=== PATIENT | male | born 1985 | race Hispanic/Latino ===

== ENCOUNTER 2018-02-25 06:14 | Emergency (ER) | payer MEDICARE, OTHER, SELFPAY ==
[2018-02-25 06:25] VITALS: BP 135/88; PULSE 95; RESP 18; TEMP 36.4; O2SAT 100; BMI 25.2
--- NOTE | 2018-02-25 07:35 | ED.BACK ---
HPI - Back Pain/Injury General Chief Complaint: Back Pain/Injury Stated Complaint: pain, weakness numbness lower back to feet Time Seen by Provider: 02/25/18 07:15 Source: patient Mode of arrival: ambulatory Limitations: no limitations History of Present Illness HPI Narrative: Patient complains of back pain with bilateral ft numbness. He states that the pain is in his bilateral lateral lower lumbar area radiates down through his bilateral SI joints into his thighs. He states his calves also feel sore. Patient states he has numbness in his feet but right is worse than left. Patient states that he has some numbness over his penile and anal areas, but no incontinence. He states that he usually uses a cane or a walker to walk, and does have a wheelchair at also, but has not been using that at this time. He states that when he stands up, he does not feel weak in the legs, but mainly uses a cane because the pain in his back. Patient denies dropping of his feet. Patient has a longstanding history of back issues, and states his chronic issues include DJD, spinal stenosis, and sciatica. States he had an accident in the early , which in part set all of this off. He states that he has had many episodes like that when he is having now, but that usually manage the pain Aleve, has not been able to get adequate relief with just leave this time. He also states that the numbness seemed slightly worse. He does note that he has had incontinence with previous episodes like this, but that this is not been an issue this time. He states his last MRI was in April, and that he sees a assistant broker. However, he denies rheumatoid arthritis, lupus, or any other autoimmune disease. He states his only other problem is fibromyalgia. Patient denies any acute injury as a cause of this exacerbation. 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 Patient just saw his primary doctor about a week ago when this episode 1st started, and that she diagnosed him with sciatica bilaterally. 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 Patient states that his primary care physician has not discussed referral to a neurosurgeon as yet. Patient states he is mainly here because he cannot get relief of the pain. Related Data Home Medications Medication Instructions Recorded Confirmed naproxen 500 mg PO BIDCC PRN #0 01/23/17 02/25/18 omeprazole 20 mg PO BID #0 01/23/17 02/25/18 famotidine [Pepcid] 20 mg PO BID #0 05/10/17 02/25/18 pregabalin [Lyrica] 150 mg PO TID #0 05/10/17 02/25/18 rizatriptan [Maxalt-JIG AND FIXTURE BUILDER] 5 mg TRANSLINGUAL PRN PRN #0 05/10/17 02/25/18 donepezil 5 mg PO DAILY 02/25/18 02/25/18 escitalopram oxalate 30 mg PO DAILY 02/25/18 02/25/18 magnesium oxide 400 mg PO DAILY 02/25/18 02/25/18 ondansetron 4 mg PO Q6H PRN 02/25/18 02/25/18 prazosin 5 mg PO QPM 02/25/18 02/25/18 promethazine [Phenadoz] 25 mg NE PRN PRN 02/25/18 02/25/18 turmeric 1 tab PO DAILY 02/25/18 02/25/18 zolpidem 10 mg PO BEDTIME PRN 02/25/18 02/25/18 zonisamide 50 mg PO QPM 02/25/18 02/25/18 Previous Rx's Medication Instructions Recorded hydrocodone-acetaminophen 1 tab PO Q4H PRN #14 tab 02/25/18 Allergies Allergy/AdvReac Type Severity Reaction Status Date / Time metoclopramide [From REGLAN] Allergy Unknown Verified 02/25/18 06:30 prochlorperazine Allergy Unknown Verified 02/25/18 06:30 [From COMPAZINE] tramadol [TRAMADOL] Allergy Unknown Unverified 05/16/17 12:07 Review of Systems Constitutional Denies chills, Denies fever(s), Denies lethargy and Denies weakness Eyes Denies change in vision, Denies eye discharge, Denies irritation and Denies loss of vision ENT Ears, Nose, Mouth, and Throat: Denies change in voice, Denies neck pain and Denies sore throat Cardiovascular Denies chest pain, Denies irregular heart rhythm, Denies lightheadedness, Denies palpitations, Denies dyspnea, Denies dyspnea on exertion and Denies orthopnea Respiratory Denies cough, Denies dyspnea, Denies dyspnea on exertion and Denies wheezing Gastrointestinal Gastrointestinal: Denies abdominal pain, Denies change in bowel habits, Denies diarrhea, Denies nausea and Denies vomiting Genitourinary Denies hematuria, Denies flank pain, Denies urinary incontinence and Denies urinary urgency Musculoskeletal Reports back pain and Denies neck pain Integumentary/Breasts Denies pruritus, Denies erythema, Denies rash and Denies wounds Neurologic Denies confusion, Denies loss of vision, Reports paresthesias and Denies weakness Psychiatric Denies anxiety, Denies confusion, Denies depression, Denies homicidal ideation and Denies suicidal ideation Endocrine Denies palpitations Hematologic/Lymphatic Denies easy bruising Allergic/Immunologic Denies wheezing [facility] Medical History Sciatica (Acute) Radiculopathy (Acute) Chronic back pain (Acute) Fibromyalgia (Acute) Surgical History No pertinent past surgical history (Acute) Social History Smoking Status: Never smoker Exam Initial Vital Signs Initial Vital Signs: Vital Signs Temperature 97.6 F 02/25/18 06:25 Pulse Rate 95 H 02/25/18 06:25 Respiratory Rate 18 02/25/18 06:25 Blood Pressure 135/88 02/25/18 06:25 Pulse Oximetry 100 02/25/18 06:25 Const General: cooperative and well developed Nutritional Appearance: well nourished Orientation: alert, awake, oriented x3 and not confused [facility] Head: normocephalic and atraumatic Ears: external ears normal and TM's normal bilaterally Nose: external nose normal and No nasal discharge Face and sinus: sinuses nontender, face symmetric, no sinus tenderness and No dry mucous membranes Mouth: oral mucosae normal and moist mucous membranes Teeth and gingiva: dentition normal Throat: tonsils normal and uvula midline Eyes General: appearance normal, both eyes and all related structures Eyelids: eyelids normal Conjunctivae: conjunctivae normal Sclera: sclerae normal Pupils: PERRL EOM: EOM intact bilaterally Neck Neck: normal visual inspection, trachea midline, No lymphadenopathy, No midline deformity and No JVD Lymphatic: No lymphedema Chest Chest: normal inspection of the chest Resp Effort & Inspection: normal respiratory effort, able to speak in complete sentences, no respiratory distress and no use of accessory muscles Auscultation: clear to auscultation bilaterally, no rales, no rhonchi and no wheezes Cardio Rate: regular rate Rhythm: regular rhythm Heart Sounds: no click, no gallops, no murmurs and no rubs Pulses: normal peripheral pulses GI Inspection: non-distended Palpation: soft, no hepatosplenomegaly, No guarding, No pulsatile mass and No tender Auscultation: normal bowel sounds Back/Spine/Pelvis Back: No CVA tenderness Cervical Spine: cervical ROM normal and No pain with cervical ROM Thoracic/Lumbar Spine: thoracic and lumbar spine normal to inspection Skin General: no rashes or lesions noted, No jaundice and No petechiae Neuro General: alert, oriented x3, tone normal, no focal motor deficits and CN's II-XI intact bilaterally Cognition: normal cognition Speech: speech normal Gait: wide-based and other (Patient ambulates slowly and somewhat haltingly, secondary to pain.) Motor: muscle tone normal throughout and strength 5/5 throughout Sensory Exam: double simultaneous stimulation abnormal (Patient has slightly decreased sensation to light touch in his right lower extremity compared with left.) Extrem General: full ROM, no clubbing, cyanosis or edema, no pedal edema and no calf tenderness Psych Appearance: well kempt Mental Status: mental status grossly normal Attitude: cooperative Thought Content: normal and suicidality Judgment: judgment good Course Course Narrative: This patient had a long-standing history of similar episodes, and had had a recent MRI in April. He had no recent trauma to raise concern for a new injury. Patient had saddle anesthesia, which was consistent with prior exacerbations and also, with his chronic symptoms somewhat, but did not display incontinence. He lacked risk factors for spinal epidural abscess, including drug use, and was afebrile. Patient was given IM Dilaudid and Toradol in the emergency department. MRI was able to fit the patient in for an MRI of his lumbar spine, and this was unremarkable for any emergent findings. The patient was informed of his results, and I did feel he was stable for discharge home. We have discussed symptomatic management at home. He states he has a wheelchair at home, which he can use, and has used in the past, but that he does not like to use it because it is embarrassing to him. The patient has requested a couple of days off work, for which I have given him a work note. Orders Ordered: Discontinued Medications Hydromorphone HCl (Dilaudid) 2 mg IM NOW ONE Stop: 02/25/18 07:35 Last Admin: 02/25/18 07:44 Dose: 2 mg Ketorolac Tromethamine (Toradol) 60 mg IM NOW ONE Stop: 02/25/18 07:35 Last Admin: 02/25/18 07:43 Dose: 60 mg Vital Signs - 8 hr 02/25/18 06:25 Temperature 97.6 F Pulse Rate 95 H Respiratory Rate 18 Blood Pressure 135/88 Pulse Oximetry 100 MDM - Back Pain/Injury Medical Records Attestation: I reviewed the patient's medical records. Imaging Data MRI - lumbar: Radiologist's impression: PROCEDURE: MR LUMBAR SPINE WO CON INDICATIONS: back pain, saddle anesthesia, LE increasingly numb/weak TECHNIQUE: Noncontrast sagittal T1 spin echo and T2 fast echo, sagittal STIR, axial T1 and T2 fast spin echo through the lumbar spine. In cases with scoliosis, additional coronal T2 fast spin echo may be performed. COMPARISON: [facility], MR, MR LUMBAR SPINE WITHOUT CONTRAST, 03/23/2017, 16:43. [facility], CR, XR LUMBAR SPINE WITH OBLIQUES, 04/05/2017, 11:25. [facility], MR, L-SPINE WITHOUT CONTRAST, 01/23/2017, 14:11. FINDINGS: Image quality: Excellent. Alignment and Curvature: There is normal bony alignment. Bone Marrow: Marrow is of normal overall signal. No acute vertebral body compression fractures. There is metal artifact from what appears to be a set of embolization coils in the expected area of the left external iliac artery of the pelvis, seen by plain film imaging in the past. Spinal Cord: Conus medullaris terminates at the L1 level. Visualized cord demonstrates normal signal and size. Paraspinous Soft Tissues: No paravertebral masses. L1-L2: Normal appearance. L2-L3: Normal appearance. L3-L4: Normal appearance. L4-L5: Normal appearance. L5-S1: Mild degenerative disc height reduction and desiccation, slight posterior disc bulge. There is no evidence for impingement on individual nerve roots or worsening of degenerative changes over time.. IMPRESSION: Minimal degenerative disc disease at L5-S1 without spinal or foraminal stenosis, stable over time. Prior embolization coils produce metal artifact obscuring visualization of the left common iliac artery area of the left hemipelvis. This has been previously present by plain film in 2006 and the metal artifact has not changed in appearance from the comparison MRI in March of last year. Findings discussed personally with the emergency room physician caring for the patient. Dictated by: Gil Mckeon M.D. on 02/25/2018 at 11:12 Approved by: Gil Mckeon M.D. on 02/25/2018 at 11:20 Discharge Plan Departure Patient Disposition: Home Clinical Impression: Acute exacerbation of chronic low back pain, Radiculopathy, Sciatica Discharge Date/Time: 02/25/18 12:36 Interventions: ED Discharge Assessment Last Done: 02/25/18 12:36 Instructions: DI for Back Pain With Sciatica, DI for Lumbar Radiculopathy Activity Restrictions/Additional Instructions: Your MRI did not show any evidence of worsening of your spinal condition. There is no impingement on your spinal cord. At this point in time, you should take medication help with the pain and continue your outpatient follow-up plans. 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-JIG AND FIXTURE BUILDER] 5 MG tablet,disintegrating 5 mg Translingual PRN PRN (Reason: Migraine Headache) Qty: 0 RF: 0 pregabalin [Lyrica] 150 MG capsule 150 mg PO TID Qty: 0 RF: 0 donepezil 5 mg tablet 5 mg PO DAILY RF: 0 prazosin 5 mg capsule 5 mg PO QPM RF: 0 zolpidem 10 mg tablet 10 mg PO BEDTIME PRN (Reason: Insomnia) RF: 0 escitalopram oxalate 20 mg tablet 30 mg PO DAILY RF: 0 promethazine [Phenadoz] 25 mg suppository 25 mg NE PRN PRN (Reason: Nausea And Vomiting) RF: 0 ondansetron 4 mg Tablet,Disintegrating 4 mg PO Q6H PRN (Reason: Nausea) RF: 0 zonisamide 25 mg capsule 50 mg PO QPM RF: 0 magnesium oxide 400 mg magnesium Tablet 400 mg PO DAILY RF: 0 turmeric 1 tab PO DAILY RF: 0 Referrals: Shante Antunez DO [Primary Care Provider] -
[2018-02-25] MEDS: KETOROLAC 60 MG/2 ML VIAL IM (07:43)
[2018-02-25] MEDS: HYDROMORPHONE 2 MG INJ IM (07:44)
--- NOTE | 2018-02-25 07:50 | ED_ITS ---
HPI - Back Pain/Injury General Chief Complaint: Back Pain/Injury Stated Complaint: pain, weakness numbness lower back to feet Time Seen by Provider: 02/25/18 07:15 Source: patient Mode of arrival: ambulatory Limitations: no limitations History of Present Illness HPI Narrative: Patient complains of back pain with bilateral ft numbness. He states that the pain is in his bilateral lateral lower lumbar area radiates down through his bilateral SI joints into his thighs. He states his calves also feel sore. Patient states he has numbness in his feet but right is worse than left. Patient states that he has some numbness over his penile and anal areas, but no incontinence. He states that he usually uses a cane or a walker to walk, and does have a wheelchair at also, but has not been using that at this time. He states that when he stands up, he does not feel weak in the legs , but mainly uses a cane because the pain in his back. Patient denies dropping of his feet. Patient has a longstanding history of back issues, and states his chronic issues include DJD, spinal stenosis, and sciatica. States he had an accident in the early , which in part set all of this off. He states that he has had many episodes like that when he is having now, but that usually manage the pain Aleve, has not been able to get adequate relief with just leave this time. He also states that the numbness seemed slightly worse. He does note that he has had incontinence with previous episodes like this, but that this is not been an issue this time. 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 However, he denies rheumatoid arthritis, lupus, or any other autoimmune disease. He states his only other problem is fibromyalgia. Patient denies any acute injury as a cause of this exacerbation. 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 Patient just saw his primary doctor about a week ago when this episode 1st started, and that she diagnosed him with sciatica bilaterally. 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 Patient states that his primary care physician has not discussed referral to a neurosurgeon as yet. Patient states he is mainly here because he cannot get relief of the pain. Related Data Home Medications Medication Instructions Recorded Confirmed naproxen 500 mg PO BIDCC PRN #0 01/23/17 02/25/18 omeprazole 20 mg PO BID #0 01/23/17 02/25/18 famotidine [Pepcid] 20 mg PO BID #0 05/10/17 02/25/18 pregabalin [Lyrica] 150 mg PO TID #0 05/10/17 02/25/18 rizatriptan [Maxalt-[employer]AS[employer]ER] 5 mg TRANSLINGUAL PRN PRN #0 05/10/17 02/25/18 donepezil 5 mg PO DAILY 02/25/18 02/25/18 escitalopram oxalate 30 mg PO DAILY 02/25/18 02/25/18 magnesium oxide 400 mg PO DAILY 02/25/18 02/25/18 ondansetron 4 mg PO Q6H PRN 02/25/18 02/25/18 prazosin 5 mg PO QPM 02/25/18 02/25/18 promethazine [Phenadoz] 25 mg IA PRN PRN 02/25/18 02/25/18 turmeric 1 tab PO DAILY 02/25/18 02/25/18 zolpidem 10 mg PO BEDTIME PRN 02/25/18 02/25/18 zonisamide 50 mg PO QPM 02/25/18 02/25/18 Previous Rx's Medication Instructions Recorded hydrocodone-acetaminophen 1 tab PO Q4H PRN #14 tab 02/25/18 Allergies Allergy/AdvReac Type Severity Reaction Status Date / Time metoclopramide [From REGLAN] Allergy Unknown Verified 02/25/18 06:30 prochlorperazine Allergy Unknown Verified 02/25/18 06:30 [From COMPAZINE] tramadol [TRAMADOL] Allergy Unknown Unverified 05/16/17 12:07 Review of Systems Constitutional Denies chills, Denies fever(s), Denies lethargy and Denies weakness Eyes Denies change in vision, Denies eye discharge, Denies irritation and Denies loss of vision ENT Ears, Nose, Mouth, and Throat: Denies change in voice, Denies neck pain and Denies sore throat Cardiovascular Denies chest pain, Denies irregular heart rhythm, Denies lightheadedness, Denies palpitations, Denies dyspnea, Denies dyspnea on exertion and Denies orthopnea Respiratory Denies cough, Denies dyspnea, Denies dyspnea on exertion and Denies wheezing Gastrointestinal Gastrointestinal: Denies abdominal pain, Denies change in bowel habits, Denies diarrhea, Denies nausea and Denies vomiting Genitourinary Denies hematuria, Denies flank pain, Denies urinary incontinence and Denies urinary urgency Musculoskeletal Reports back pain and Denies neck pain Integumentary/Breasts Denies pruritus, Denies erythema, Denies rash and Denies wounds Neurologic Denies confusion, Denies loss of vision, Reports paresthesias and Denies weakness Psychiatric Denies anxiety, Denies confusion, Denies depression, Denies homicidal ideation and Denies suicidal ideation Endocrine Denies palpitations Hematologic/Lymphatic Denies easy bruising Allergic/Immunologic Denies wheezing [facility] Medical History Sciatica (Acute) Radiculopathy (Acute) Chronic back pain (Acute) Fibromyalgia (Acute) Surgical History No pertinent past surgical history (Acute) Social History Smoking Status: Never smoker Exam Initial Vital Signs Initial Vital Signs: Vital Signs Temperature 97.6 F 02/25/18 06:25 Pulse Rate 95 H 02/25/18 06:25 Respiratory Rate 18 02/25/18 06:25 Blood Pressure 135/88 02/25/18 06:25 Pulse Oximetry 100 02/25/18 06:25 Const General: cooperative and well developed Nutritional Appearance: well nourished Orientation: alert, awake, oriented x3 and not confused [facility] Head: normocephalic and atraumatic Ears: external ears normal and TM's normal bilaterally Nose: external nose normal and No nasal discharge Face and sinus: sinuses nontender, face symmetric, no sinus tenderness and No dry mucous membranes Mouth: oral mucosae normal and moist mucous membranes Teeth and gingiva: dentition normal Throat: tonsils normal and uvula midline Eyes General: appearance normal, both eyes and all related structures Eyelids: eyelids normal Conjunctivae: conjunctivae normal Sclera: sclerae normal Pupils: PERRL EOM: EOM intact bilaterally Neck Neck: normal visual inspection, trachea midline, No lymphadenopathy, No midline deformity and No JVD Lymphatic: No lymphedema Chest Chest: normal inspection of the chest Resp Effort & Inspection: normal respiratory effort, able to speak in complete sentences, no respiratory distress and no use of accessory muscles Auscultation: clear to auscultation bilaterally, no rales, no rhonchi and no wheezes Cardio Rate: regular rate Rhythm: regular rhythm Heart Sounds: no click, no gallops, no murmurs and no rubs Pulses: normal peripheral pulses GI Inspection: non-distended Palpation: soft, no hepatosplenomegaly, No guarding, No pulsatile mass and No tender Auscultation: normal bowel sounds Back/Spine/Pelvis Back: No CVA tenderness Cervical Spine: cervical ROM normal and No pain with cervical ROM Thoracic/Lumbar Spine: thoracic and lumbar spine normal to inspection Skin General: no rashes or lesions noted, No jaundice and No petechiae Neuro General: alert, oriented x3, tone normal, no focal motor deficits and CN's II- XI intact bilaterally Cognition: normal cognition Speech: speech normal Gait: wide-based and other (Patient ambulates slowly and somewhat haltingly, secondary to pain.) Motor: muscle tone normal throughout and strength 5/5 throughout Sensory Exam: double simultaneous stimulation abnormal (Patient has slightly decreased sensation to light touch in his right lower extremity compared with left.) Extrem General: full ROM, no clubbing, cyanosis or edema, no pedal edema and no calf tenderness Psych Appearance: well kempt Mental Status: mental status grossly normal Attitude: cooperative Thought Content: normal and suicidality Judgment: judgment good Course Course Narrative: This patient had a long-standing history of similar episodes, and had had a recent MRI in April. He had no recent trauma to raise concern for a new injury. Patient had saddle anesthesia, which was consistent with prior exacerbations and also, with his chronic symptoms somewhat, but did not display incontinence. He lacked risk factors for spinal epidural abscess, including drug use, and was afebrile. Patient was given IM Dilaudid and Toradol in the emergency department. MRI was able to fit the patient in for an MRI of his lumbar spine, and this was unremarkable for any emergent findings. The patient was informed of his results, and I did feel he was stable for discharge home. We have discussed symptomatic management at home. He states he has a wheelchair at home, which he can use, and has used in the past, but that he does not like to use it because it is embarrassing to him. The patient has requested a couple of days off work, for which I have given him a work note. Orders Ordered: Discontinued Medications Hydromorphone HCl (Dilaudid) 2 mg IM NOW ONE Stop: 02/25/18 07:35 Last Admin: 02/25/18 07:44 Dose: 2 mg Ketorolac Tromethamine (Toradol) 60 mg IM NOW ONE Stop: 02/25/18 07:35 Last Admin: 02/25/18 07:43 Dose: 60 mg Vital Signs - 8 hr 02/25/18 06:25 Temperature 97.6 F Pulse Rate 95 H Respiratory Rate 18 Blood Pressure 135/88 Pulse Oximetry 100 MDM - Back Pain/Injury Medical Records Attestation: I reviewed the patient's medical records. Imaging Data MRI - lumbar: Radiologist's impression: PROCEDURE: MR LUMBAR SPINE WO CON INDICATIONS: back pain, saddle anesthesia, LE increasingly numb/weak TECHNIQUE: Noncontrast sagittal T1 spin echo and T2 fast echo, sagittal STIR, axial T1 and T2 fast spin echo through the lumbar spine. In cases with scoliosis, additional coronal T2 fast spin echo may be performed. COMPARISON: [facility], MR, MR LUMBAR SPINE WITHOUT CONTRAST, 2017, 16:43. [facility], CR, XR LUMBAR SPINE WITH OBLIQUES, 04/05/2017, 11 :25. [facility], MR, L-SPINE WITHOUT CONTRAST, 01/23/2017, 14:11. FINDINGS: Image quality: Excellent. Alignment and Curvature: There is normal bony alignment. Bone Marrow: Marrow is of normal overall signal. No acute vertebral body compression fractures. There is metal artifact from what appears to be a set of embolization coils in the expected area of the left external iliac artery of the pelvis, seen by plain film imaging in the past. Spinal Cord: Conus medullaris terminates at the L1 level. Visualized cord demonstrates normal signal and size. Paraspinous Soft Tissues: No paravertebral masses. L1-L2: Normal appearance. L2-L3: Normal appearance. L3-L4: Normal appearance. L4-L5: Normal appearance. L5-S1: Mild degenerative disc height reduction and desiccation, slight posterior disc bulge. There is no evidence for impingement on individual nerve roots or worsening of degenerative changes over time.. IMPRESSION: Minimal degenerative disc disease at L5-S1 without spinal or foraminal stenosis, stable over time. Prior embolization coils produce metal artifact obscuring visualization of the left common iliac artery area of the left hemipelvis. This has been previously present by plain film in 2006 and the metal artifact has not changed in appearance from the comparison MRI in March of last year. Findings discussed personally with the emergency room physician caring for the patient. Dictated by: Gil Mckeon M.D. on 02/25/2018 at 11:12 Approved by: Gil Mckeon M.D. on 02/25/2018 at 11:20 Discharge Plan Departure Patient Disposition: Home Clinical Impression: Acute exacerbation of chronic low back pain, Radiculopathy, Sciatica Discharge Date/Time: 02/25/18 12:36 Interventions: ED Discharge Assessment Last Done: 02/25/18 12:36 Instructions: DI for Back Pain With Sciatica, DI for Lumbar Radiculopathy Activity Restrictions/Additional Instructions: Your MRI did not show any evidence of worsening of your spinal condition. There is no impingement on your spinal cord. At this point in time, you should take medication help with the pain and continue your outpatient follow-up plans. 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] 5 MG tablet,disintegrating 5 mg Translingual PRN PRN (Reason: Migraine Headache) Qty: 0 RF: 0 pregabalin [Lyrica] 150 MG capsule 150 mg PO TID Qty: 0 RF: 0 donepezil 5 mg tablet 5 mg PO DAILY RF: 0 prazosin 5 mg capsule 5 mg PO QPM RF: 0 zolpidem 10 mg tablet 10 mg PO BEDTIME PRN (Reason: Insomnia) RF: 0 escitalopram oxalate 20 mg tablet 30 mg PO DAILY RF: 0 promethazine [Phenadoz] 25 mg suppository 25 mg IA PRN PRN (Reason: Nausea And Vomiting) RF: 0 ondansetron 4 mg Tablet,Disintegrating 4 mg PO Q6H PRN (Reason: Nausea) RF: 0 zonisamide 25 mg capsule 50 mg PO QPM RF: 0 magnesium oxide 400 mg magnesium Tablet 400 mg PO DAILY RF: 0 turmeric 1 tab PO DAILY RF: 0 Referrals: Shante Antunez DO [Primary Care Provider] -
--- NOTE | 2018-02-25 07:50 | PC.NURSE ---
Pt medicated per order. Asking for work note--Dr Boothe notified.
--- NOTE | 2018-02-25 08:35 | DI.MRI.S_ITS ---
PROCEDURE: MR LUMBAR SPINE WO CON INDICATIONS: back pain, saddle anesthesia, LE increasingly numb/weak TECHNIQUE: Noncontrast sagittal T1 spin echo and T2 fast echo, sagittal STIR, axial T1 and T2 fast spin echo through the lumbar spine. In cases with scoliosis, additional coronal T2 fast spin echo may be performed. COMPARISON: [facility], MR, MR LUMBAR SPINE WITHOUT CONTRAST, 03/23/2017, 16:43. [facility], CR, XR LUMBAR SPINE WITH OBLIQUES, 04/05/2017, 11:25. [facility], MR, L-SPINE WITHOUT CONTRAST, 01/23/2017, 14:11. FINDINGS: Image quality: Excellent. Alignment and Curvature: There is normal bony alignment. Bone Marrow: Marrow is of normal overall signal. No acute vertebral body compression fractures. There is metal artifact from what appears to be a set of embolization coils in the expected area of the left external iliac artery of the pelvis, seen by plain film imaging in the past. Spinal Cord: Conus medullaris terminates at the L1 level. Visualized cord demonstrates normal signal and size. Paraspinous Soft Tissues: No paravertebral masses. L1-L2: Normal appearance. L2-L3: Normal appearance. L3-L4: Normal appearance. L4-L5: Normal appearance. L5-S1: Mild degenerative disc height reduction and desiccation, slight posterior disc bulge. There is no evidence for impingement on individual nerve roots or worsening of degenerative changes over time.. IMPRESSION: Minimal degenerative disc disease at L5-S1 without spinal or foraminal stenosis, stable over time. Prior embolization coils produce metal artifact obscuring visualization of the left common iliac artery area of the left hemipelvis. This has been previously present by plain film in 2006 and the metal artifact has not changed in appearance from the comparison MRI in March of last year. Findings discussed personally with the emergency room physician caring for the patient. Dictated by: Gil Mckeon M.D. on 02/25/2018 at 11:12 Approved by: Gil Mckeon M.D. on 02/25/2018 at 11:20
[2018-02-25 08:50] VITALS: BP 134/95; PULSE 76; RESP 16; TEMP 37; O2SAT 99
[2018-02-25 09:50] VITALS: BP 126/94; PULSE 81; RESP 15; O2SAT 97
[2018-02-25 10:34] VITALS: BP 131/96; PULSE 80; RESP 16; O2SAT 98
[2018-02-25 11:00] VITALS: BP 130/87; PULSE 71; RESP 16; O2SAT 99
== END 2018-02-25 12:36 | disposition home or self-care (01) ==
PROVIDERS: Emergency Provider Emergency Medicine; PCP Student in an Organized Health Care Education/Training Program
DX: M54.5 Low back pain (principal); R20.0 Anesthesia of skin; G89.29 Other chronic pain; M54.10 Radiculopathy, site unspecified; M54.30 Sciatica, unspecified side; R53.1 Weakness; M79.7 Fibromyalgia
CPT/HCPCS: 72148; 96372; 99283; 99284; J1170; J1885

== ENCOUNTER 2018-10-08 04:45 | Emergency (ER) | payer MEDICARE, OTHER, SELFPAY ==
[2018-10-08 04:52] VITALS: BP 159/105; PULSE 123; RESP 18; TEMP 36.9; O2SAT 97; BMI 23.5
--- NOTE | 2018-10-08 04:59 | ED_ITS ---
HPI - Headache General Chief Complaint: Headache Stated Complaint: bupper back pain migraines vomiting Time Seen by Provider: 10/08/18 04:46 Source: patient and family Mode of arrival: ambulatory Limitations: no limitations History of Present Illness HPI Narrative: 33M nonsmoker with history of migraines, closed head injury, and chronic back pain presents with his significant other and a chief complaint gradually worsening right-sided upper back and neck pain, gradually worsening over the past few days. He denies any significant, or obvious injury nor overuse. He states it is not uncommon for him to have typical types of pain but they usually will respond to his home regimen. He started with right-sided neck and upper back pain and now is having a migraine which is rather typical for his history. He states his symptoms are worse with bright lights and loud noise and improved with rest and a dark room. His neck and back pain are worse with motion and improved with rest. He denies any numbness, tingling or weakness. He denies any trouble controlling bowel or bladder. MD Complaint: migraine Onset (ago): day(s) Onset description: gradual Location: right Severity: moderate Quality: aching and throbbing Relieving factors: rest and dark room Exacerbating factors: movement of head/neck, light and noise Context: occurred at rest Associated symptoms: nausea, photophobia and sensitivity to sound Treatments prior to arrival: prescription analgesic Related Data Home Medications Medication Instructions Recorded Confirmed naproxen 500 mg PO BIDCC PRN #0 01/23/17 02/25/18 omeprazole 20 mg PO BID #0 01/23/17 02/25/18 famotidine [Pepcid] 20 mg PO BID #0 05/10/17 02/25/18 pregabalin [Lyrica] 150 mg PO TID #0 05/10/17 02/25/18 rizatriptan [Maxalt-ASBESTOS [employer]] 5 mg TRANSLINGUAL PRN PRN #0 05/10/17 02/25/18 donepezil 5 mg PO DAILY 02/25/18 02/25/18 escitalopram oxalate 30 mg PO DAILY 02/25/18 02/25/18 magnesium oxide 400 mg PO DAILY 02/25/18 02/25/18 ondansetron 4 mg PO Q6H PRN 02/25/18 02/25/18 prazosin 5 mg PO QPM 02/25/18 02/25/18 promethazine [Phenadoz] 25 mg MO PRN PRN 02/25/18 02/25/18 turmeric 1 tab PO DAILY 02/25/18 02/25/18 zolpidem 10 mg PO BEDTIME PRN 02/25/18 02/25/18 zonisamide 50 mg PO QPM 02/25/18 02/25/18 Previous Rx's Medication Instructions Recorded hydrocodone-acetaminophen 1 tab PO Q4H PRN #14 tab 02/25/18 diazepam [Valium] 5 mg PO BID-QID PRN #10 tab 10/08/18 ketorolac 10 mg PO Q6H PRN #14 tab 10/08/18 Allergies Allergy/AdvReac Type Severity Reaction Status Date / Time metoclopramide [From REGLAN] Allergy Unknown Verified 02/25/18 06:30 prochlorperazine Allergy Unknown Verified 02/25/18 06:30 [From COMPAZINE] tramadol [TRAMADOL] Allergy Unknown Unverified 05/16/17 12:07 Review of Systems Constitutional Constitutional: Denies chills, Denies fatigue, Denies fever(s), Denies frequent falls, Reports headache(s), Denies lethargy and Denies weakness Eyes Eyes: Denies change in vision, Denies eye discharge, Denies irritation and Denies loss of vision ENT Ears, Nose, Mouth, and Throat: Denies change in voice, Denies dizziness, Reports headache(s), Reports neck pain, Denies sore throat and Denies throat swelling Cardiovascular Cardiovascular: Denies chest pain, Denies irregular heart rhythm, Denies lightheadedness, Denies palpitations, Denies dyspnea, Denies dyspnea on exertion and Denies orthopnea Respiratory Respiratory: Denies cough, Denies dyspnea, Denies dyspnea on exertion and Denies wheezing Gastrointestinal Gastrointestinal: Denies abdominal pain, Denies change in bowel habits, Denies diarrhea, Reports nausea and Denies vomiting Genitourinary Genitourinary: Denies hematuria, Denies flank pain, Denies urinary incontinence and Denies urinary urgency Musculoskeletal Musculoskeletal: Reports back pain, Denies muscle weakness, Reports neck pain, Denies numbness and Denies tingling Integumentary/Breasts Skin/Breast: Denies pruritus, Denies erythema, Denies rash and Denies wounds Neurologic Neurologic: Denies behavioral changes, Denies confusion, Denies dizziness, Denies frequent falls, Reports headache(s), Denies loss of vision, Denies numbness, Denies tingling and Denies weakness Psychiatric Psychiatric: Denies anxiety, Denies behavioral changes, Denies confusion, Denies depression, Denies homicidal ideation and Denies suicidal ideation Endocrine Endocrine: Denies fatigue, Denies flushing and Denies palpitations Hematologic/Lymphatic Hematologic/Lymphatic: Denies easy bruising Allergic/Immunologic Allergic/Immunologic: Denies urticaria, Denies throat swelling and Denies wheezing [facility] Medical History Chronic back pain (Acute) Fibromyalgia (Acute) Radiculopathy (Acute) Sciatica (Acute) Surgical History No pertinent past surgical history (Acute) Social History Smoking Status: Never smoker Social History Smoking Status: Never smoker Exam Narrative Exam Narrative: GENERAL: [33] year old patient appears stated age. Well- nourished, well-developed patient, in mild distress. Clearly in pain HEAD: Atraumatic. Normocephalic. EYES: Pupils equal round and reactive. Extraocular motions intact. No scleral icterus. No injection or drainage. ENT: Nose without bleeding, purulent drainage. Throat without erythema, tonsillar hypertrophy or exudate. Airway patent. NECK: Trachea midline. Right-sided paraspinal muscles are tender to palpation, with palpable spasm CARDIOVASCULAR: Regular rate and rhythm without murmurs, gallops, or rubs. RESPIRATORY: Clear to auscultation. Breath sounds equal bilaterally. No wheezes, rales, or rhonchi. GASTROINTESTINAL: Abdomen soft, non-tender, nondistended. EXTREMITIES: No edema or joint tenderness. Full strength, range of motion and reflexes BACK: Nontender without deformity or crepitance. No flank tenderness. NEURO: AOx3. SKIN: No rash or erythema of visible areas Initial Vital Signs Initial Vital Signs: Vital Signs Temperature 98.4 F 10/08/18 04:52 Pulse Rate 123 H 10/08/18 04:52 Respiratory Rate 18 10/08/18 04:52 Blood Pressure 159/105 H 10/08/18 04:52 Pulse Oximetry 97 10/08/18 04:52 Course Orders Ordered: Discontinued Medications Dexamethasone (Decadron) 10 mg IV NOW ONE Stop: 10/08/18 05:01 Last Admin: 10/08/18 05:10 Dose: 10 mg Documented by: IVANNA Hydromorphone HCl (Dilaudid) 1 mg IV NOW ONE Stop: 10/08/18 05:01 Last Admin: 10/08/18 05:10 Dose: 1 mg Documented by: IVANNA Sodium Chloride (Normal Saline 0.9%) 1,000 mls @ 1,000 mls/hr IV BOLUS ONE Stop: 10/08/18 06:03 Last Infusion: 10/08/18 06:10 Dose: 0 mls/hr Documented by: Admin: 10/08/18 05:10 Dose: 1,000 mls/hr Documented by: IVANNA Ketorolac Tromethamine (Toradol) 15 mg IV NOW ONE Stop: 10/08/18 05:01 Last Admin: 10/08/18 05:10 Dose: 15 mg Documented by: IVANNA Ondansetron HCl (Zofran) 4 mg IV Q4HR PRN PRN Reason: Nausea And Vomiting Last Admin: 10/08/18 05:10 Dose: 4 mg Documented by: IVANNA Vital Signs Vital signs: Vital Signs - 8 hr 10/08/18 04:52 Temperature 98.4 F Pulse Rate 123 H Respiratory Rate 18 Blood Pressure 159/105 H Pulse Oximetry 97 Discharge Plan Departure Patient Disposition: Home Clinical Impression: Cervical paraspinal muscle spasm Migraine headache Qualifiers: Migraine type: unspecified Status migrainosus presence: without status migrainosus Intractability: not intractable Qualified Code(s): G43.909 - Migraine, unspecified, not intractable, without status migrainosus Discharge Date/Time: 10/08/18 06:15 Instructions: DI for Migraine Activity Restrictions/Additional Instructions: *You have been diagnosed with [acute migraine and cervical paraspinal spasm] *What to do: *Take medications as directed *Follow up with your primary care provider in 2-3 days, call for an appointment. Let them know you were seen in the Emergency Department and that we ask that you be seen in follow up *Return to ER if you should have any new, worsening or concerning symptoms Prescriptions: New ketorolac 10 mg tablet 10 mg PO Q6H PRN (Reason: pain) Qty: 14 RF: 0 diazepam [Valium] 5 mg tablet 5 mg PO BID-QID PRN (Reason: muscle spasm) Qty: 10 RF: 0 No Action omeprazole 20 mg Capsule,Delayed Release(Dr/Ec) 20 mg PO BID Qty: 0 RF: 0 naproxen 500 MG tablet 500 mg PO BIDCC PRN (Reason: pain) Qty: 0 RF: 0 famotidine [Pepcid] 20 MG tablet 20 mg PO BID Qty: 0 RF: 0 rizatriptan [Maxalt-ASBESTOS [employer]] 5 MG tablet,disintegrating 5 mg Translingual PRN PRN (Reason: Migraine Headache) Qty: 0 RF: 0 pregabalin [Lyrica] 150 MG capsule 150 mg PO TID Qty: 0 RF: 0 donepezil 5 mg tablet 5 mg PO DAILY RF: 0 prazosin 5 mg capsule 5 mg PO QPM RF: 0 zolpidem 10 mg tablet 10 mg PO BEDTIME PRN (Reason: Insomnia) RF: 0 escitalopram oxalate 20 mg tablet 30 mg PO DAILY RF: 0 promethazine [Phenadoz] 25 mg suppository 25 mg MO PRN PRN (Reason: Nausea And Vomiting) RF: 0 ondansetron 4 mg Tablet,Disintegrating 4 mg PO Q6H PRN (Reason: Nausea) RF: 0 zonisamide 25 mg capsule 50 mg PO QPM RF: 0 magnesium oxide 400 mg magnesium Tablet 400 mg PO DAILY RF: 0 turmeric 1 tab PO DAILY RF: 0 hydrocodone-acetaminophen 5-325 mg tablet 1 tab PO Q4H PRN (Reason: pain) Qty: 14 RF: 0 Referrals: Shante Antunez DO [Primary Care Provider] -
[2018-10-08] MEDS: HYDROMORPHONE 1 MG INJ IV (05:10)
[2018-10-08] MEDS: ONDANSETRON 4 MG/2 ML INJ IV (05:10)
[2018-10-08] MEDS: DEXAMETHASONE 10 MG/ML VIAL IV (05:10)
[2018-10-08] MEDS: KETOROLAC 60 MG/2 ML VIAL 15 MG IV (05:10)
[2018-10-08] MEDS: SODIUM CHLORIDE 0.9% 1,000 ML 1000 ML IV (05:10)
[2018-10-08 05:21] VITALS: BP 136/91; PULSE 103; RESP 16; O2SAT 97
== END 2018-10-08 06:15 | disposition home or self-care (01) ==
PROVIDERS: Emergency Provider Emergency Medicine; PCP Student in an Organized Health Care Education/Training Program
DX: G43.909 Migraine, unspecified, not intractable, without status migrainosus (principal); M62.838 Other muscle spasm
CPT/HCPCS: 36591; 96361; 96374; 96375; 99283; 99284; J1100; J1170; J1885; J2405

== ENCOUNTER → 2019-07-02 14:49 | Outpatient (CLI) | payer MEDICARE, OTHER, SELFPAY ==
--- NOTE | 2019-07-02 14:56 | DI.CT.S_ITS ---
PROCEDURE: CT THORACIC SPINE WO CON INDICATIONS: Spondylosis without myelopathy or radiculopathy, c TECHNIQUE: Noncontrast 3 mm thick sections acquired through the region of interest in the thoracic spine. Sagittal and coronal reformats were then constructed. For radiation dose reduction, the following was used: automated exposure control. COMPARISON: [facility], MR, T-SPINE WITHOUT CONTRAST, 01/23/2017, 13:59. FINDINGS: Image quality: Excellent. Bones: Postsurgical changes compatible T1-T3 posterior fusion with placement of bilateral L1 and L3 transpedicular screws and bilateral posterior fusion rods. Orthopedic hardware is intact. No lucency is identified at the bone hardware interface. There is normal overall bony alignment. No acute vertebral body compression fractures. No suspicious sclerotic or lytic bony lesions. Mild T1-T2, T2-T3, T3-T4, T4-T5, T5-T6, T6-T7, T7-T8 and T10-T11 degenerative disc disease. Central spinal canal is of normal overall caliber. No significant neural foraminal narrowing. Soft tissues: No paravertebral masses or hematomas. Visualized posteromedial lungs appear clear. IMPRESSION: 1. Status post C1-T3 posterior fusion. 2. Mild multilevel degenerative disease. 3. No central stenosis. 4. No significant neural foraminal narrowing. 5. No fracture. No acute osseous lesion. If symptoms and/or clinical suspicion for pathology persists, evaluation with MRI may be helpful for further assessment. Dictated by: Chloe Kumar MD, PhD on 07/02/2019 at 17:26 Approved by: Chloe Kumar MD, PhD on 07/02/2019 at 17:30
--- NOTE | 2019-07-02 14:56 | DI.CT.S_ITS ---
2PROCEDURE: CT CERVICAL SPINE WO CON INDICATIONS: Spondylosis without myelopathy or radiculopathy, c TECHNIQUE: Noncontrast 3 mm thick sections acquired from the skull base to the T4 level. Sagittal and coronal reformats were then constructed. For radiation dose reduction, the following was used: automated exposure control, adjustment of mA and/or kV according to patient size. COMPARISON: [facility], MR, MR CERVICAL SPINE WITH/WITHOUT CONTRAST, 04/10/2019, 12:19. [facility], MR, C-SPINE WITHOUT CONTRAST, 01/23/2017, 13:42. [facility], CR, XR CERVICAL SPINE WITH OBLIQUES, 04/05/2017, 11:25. FINDINGS: Image quality: Excellent. Bones: Postsurgical changes compatible T1-T3 posterior fusion with placement of bilateral L1 and L3 transpedicular screws and bilateral fusion rods. Orthopedic hardware is intact. A lucency is identified at the bone hardware interface. No fractures or dislocations. There is normal alignment of the visualized vertebral bodies. A mild focal kyphosis noted at C7-T1. Visualized superior ribs are intact. Mild C2-C3, C3-C4, C4-C5, C5-C6 and C7-T1 degenerative disc disease. Soft tissues: Tonsillar enlargement is stable compared to prior cervical spine MRI of pancreas is 06/2019. No paravertebral hematomas. No apical pneumothoraces. IMPRESSION: 1. Status post T1-T3 posterior fusion. 2. Mild multilevel degenerative disc disease. 3. No fracture. No acute osseous lesion. Dictated by: Chloe Kumar MD, PhD on 07/02/2019 at 17:21 Approved by: Chloe Kumar MD, PhD on 07/02/2019 at 17:26
== END ==
PROVIDERS: PCP Student in an Organized Health Care Education/Training Program; Referring Provider Neurological Surgery; Visit Provider Neurological Surgery
DX: M47.812 Spondylosis without myelopathy or radiculopathy, cervical region (principal); M50.31 Other cervical disc degeneration, high cervical region; Z98.1 Arthrodesis status
CPT/HCPCS: 72125; 72128

== ENCOUNTER → 2019-07-06 09:24 | Outpatient (CLI) | payer MEDICARE, OTHER, SELFPAY ==
--- NOTE | 2019-07-06 | DI.RAD.S_ITS ---
PROCEDURE: XR CERVICAL SPINE 2V OR 3V INDICATIONS: CERVICAL MYELOPATHY TECHNIQUE: 3 view(s) of the cervical spine were acquired. COMPARISON: [facility], MR, MR CERVICAL SPINE WITH/WITHOUT CONTRAST, 04/10/2019, 12:19. [facility], CT, CT CERVICAL SPINE WO CON, 07/02/2019, 15:06. FINDINGS: Bones: No fractures or dislocations are seen. Postoperative hardware is seen T1-T3. No findings of hardware failure or hardware loosening are seen. Soft tissues: No prevertebral soft tissue swelling. The visualized lung apices are unremarkable. IMPRESSION: No significant cervical spine abnormality is seen by plain film. Unremarkable T1-T3 hardware. Dictated by: Earl Siu M.D. on 07/06/2019 at 9:22 Approved by: Earl Siu M.D. on 07/06/2019 at 9:24
== END ==
PROVIDERS: PCP Student in an Organized Health Care Education/Training Program; Referring Provider Student in an Organized Health Care Education/Training Program; Visit Provider Neurological Surgery
DX: G95.9 Disease of spinal cord, unspecified (principal)
CPT/HCPCS: 72040

== ENCOUNTER → 2019-08-15 06:30 | Outpatient (CLI) | payer MEDICARE, OTHER, SELFPAY ==
--- NOTE | 2019-08-15 | DI.MRI.S_ITS ---
PROCEDURE: MR LUMBAR SPINE WO CON INDICATIONS: Spinal stenosis, lumbar region with neurogenic cla TECHNIQUE: Noncontrast sagittal T1 spin echo and T2 fast echo, sagittal STIR, axial T1 and T2 fast spin echo through the lumbar spine. In cases with scoliosis, additional coronal T2 fast spin echo may be performed. COMPARISON: [facility], CR, XR LUMBAR SPINE WITH OBLIQUES, 04/05/2017, 11:25. [facility], MR, MR LUMBAR SPINE WO CON, 02/25/2018, 9:00. FINDINGS: Image quality: Excellent. Alignment and Curvature: There is normal bony alignment. Bone Marrow: Marrow is of normal overall signal. No acute vertebral body compression fractures. Spinal Cord: Conus medullaris terminates at the L1-2 disc level. Visualized cord demonstrates normal signal and size. Paraspinous Soft Tissues: No paravertebral masses. Susceptibility artifact noted in the left pelvis related to metallic endovascular coils next identified by plain radiograph. L1-L2: Normal appearance. L2-L3: Normal appearance. L3-L4: Normal appearance. L4-L5: Slight loss of disc signal. Mild, diffuse disc bulge. No central stenosis. Mild right and moderate left neural foraminal narrowing. No neural compression. L5-S1: Slight loss of disc signal. Mild, diffuse disc bulge. No central stenosis. No neural foraminal narrowing. No neural compression. IMPRESSION: 1. Mild L4-L5 and L5-S1 degenerative disc disease 2. No central stenosis. 3. Mild right and moderate left L4-L5 neural foraminal narrowing. 4. No neural compression. Dictated by: Chloe Kumar MD, PhD on 08/15/2019 at 10:00 Approved by: Chloe Kumar MD, PhD on 08/15/2019 at 10:15
== END ==
PROVIDERS: PCP Student in an Organized Health Care Education/Training Program; Referring Provider Neurological Surgery; Visit Provider Neurological Surgery
DX: M48.062 Spinal stenosis, lumbar region with neurogenic claudication (principal); M51.36 Other intervertebral disc degeneration, lumbar region; M51.37 Other intervertebral disc degeneration, lumbosacral region
CPT/HCPCS: 72148

== ENCOUNTER 2021-05-12 06:46 | Emergency (ER) | payer MEDICARE, OTHER, SELFPAY ==
[2021-05-12 06:59] VITALS: BP 129/69; PULSE 75; RESP 20; TEMP 36.8; O2SAT 98; BMI 25.8
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
--- NOTE | 2021-05-12 07:32 | DI.CT.S_ITS ---
PROCEDURE: CT HEAD/BRAIN WO CON INDICATIONS: atypical migraine TECHNIQUE: Noncontrast 4.5 mm thick angled axial sections acquired from the foramen magnum to the vertex, with coronal and sagittal reformats. For radiation dose reduction, the following was used: automated exposure control, adjustment of mA and/or kV according to patient size. COMPARISON: [facility], CT, HEAD WITHOUT CONTRAST, 03/20/2017, 9:55. FINDINGS: Image quality: Excellent. CSF spaces: Basal cisterns are patent. No extra-axial fluid collections. Ventricles are normal in size and shape. Brain: No midline shift. No intracranial masses or hemorrhage. Blackman-white matter interface is normal. Skull and face: Calvarium and visualized facial bones are intact, without suspicious lesions. Sinuses: Visualized sinuses and mastoids are clear. IMPRESSION: No CT evidence of acute intracranial abnormalities. Dictated by: Louis Brooke M.D. on 05/12/2021 at 8:46 Approved by: Louis Brooke M.D. on 05/12/2021 at 8:47
[2021-05-12] MEDS: DEXAMETHASONE 10 MG/ML VIAL IV (08:09)
[2021-05-12] MEDS: diphenhydrAMINE 50 MG/ML VIAL 25 MG IV (08:09)
[2021-05-12] MEDS: KETOROLAC 30 MG/ML VIAL IV (08:09)
[2021-05-12] MEDS: ONDANSETRON 4 MG/2 ML INJ IV (08:10)
[2021-05-12] MEDS: SODIUM CHLORIDE 0.9% 1,000 ML 1000 ML IV (08:10)
[2021-05-12 08:13] LABS: Add Manual Diff / Slide Review NO; Basophils Absolute Auto 0 /uL (0-100); Basophils Percent Auto 0.6 % (0-2); Eosinophils Absolute Auto 200 /uL (0-450); Eosinophils Percent Auto 3.3 % (2-4); Hematocrit 40.7 % (41-53); Hemoglobin 13.8 g/dL (13.5-17.5); Lymphocytes Absolute Auto 2200 /uL (1100-4500); Lymphocytes Percent Auto 29.6 % (25-40); Mean Corpuscular HGB Conc 33.9 % (30-36); Mean Corpuscular Hemoglobin 31.1 PG (26-34); Mean Corpuscular Volume 91.8 fL (80-100); Monocytes Absolute Auto 600 /uL (0-900); Monocytes Percent Auto 8.1 % (3-14); Neutrophils Absolute Auto 4400 /uL (1500-7000); Neutrophils Percent Auto 58.4 % (50-75); Platelet Count 237 X10^3/uL (150-400); Red Blood Cell Count 4.44 X10^6/uL (4.5-5.9); Red Cell Distribution Width 14.1 % (11.6-14.8); White Blood Cell Count 7.5 X10^3/uL (4.5-11.0)
[2021-05-12 08:25] LABS: Alanine Aminotransferase 16 IU/L (<50); Albumin 4.5 g/dL (3.5-5.0); Albumin Globulin Ratio 1.1 (1.0-2.8); Alkaline Phosphatase 94 U/L (38-126); Aspartate Aminotransferase 23 IU/L (17-59); BUN Creatinine Ratio 14.9 (6-22); Bilirubin Total 0.4 mg/dL (0.2-1.3); Blood Urea Nitrogen 17 mg/dL (9-20); Carbon Dioxide 28 mmol/L (22-32); Chloride 106 mmol/L (98-107); Estimated Glomerular Filt Rate > 60.0 mL/min (>60); Glucose 92 mg/dL (70-100); HEMOLYSIS 18 (0-50); Potassium 4.4 mmol/L (3.4-5.1); Sodium 141 mmol/L (137-145); Total Protein 8.5 g/dL (6.3-8.2)
[2021-05-12] MEDS: MORPHINE 4 MG/ML INJ IV (09:36)
[2021-05-12 10:22] VITALS: BP 100/62; PULSE 69; RESP 18; O2SAT 97
== END 2021-05-12 10:24 | disposition home or self-care (01) ==
PROVIDERS: Emergency Provider Emergency Medicine; PCP Family Medicine
DX: G43.909 Migraine, unspecified, not intractable, without status migrainosus (principal); M54.42 Lumbago with sciatica, left side; M54.41 Lumbago with sciatica, right side; Z88.5 Allergy status to narcotic agent
CPT/HCPCS: 36415; 70450; 80053; 81003; 85025; 96374; 96375; 99284; J1100; J1200; J1885; J2270; J2405

== ENCOUNTER 2021-06-23 05:37 | Emergency (ER) | payer MEDICARE, OTHER, SELFPAY ==
[2021-06-23 05:50] VITALS: BP 138/85; PULSE 85; RESP 20; TEMP 36.9; O2SAT 98; BMI 26.6
[2021-06-23 06:03] LABS: Add Manual Diff / Slide Review NO; Basophils Absolute Auto 100 /uL (0-100); Basophils Percent Auto 1.3 % (0-2); Eosinophils Absolute Auto 200 /uL (0-450); Eosinophils Percent Auto 3.1 % (2-4); Hematocrit 44.2 % (41-53); Hemoglobin 15.1 g/dL (13.5-17.5); Lymphocytes Absolute Auto 2500 /uL (1100-4500); Lymphocytes Percent Auto 39.6 % (25-40); Mean Corpuscular Hemoglobin 31.2 PG (26-34); Mean Corpuscular Volume 91.6 fL (80-100); Monocytes Absolute Auto 500 /uL (0-900); Monocytes Percent Auto 7.5 % (3-14); Neutrophils Absolute Auto 3100 /uL (1500-7000); Neutrophils Percent Auto 48.5 % (50-75); Platelet Count 242 X10^3/uL (150-400); Red Blood Cell Count 4.83 X10^6/uL (4.5-5.9); Red Cell Distribution Width 13.8 % (11.6-14.8); White Blood Cell Count 6.4 X10^3/uL (4.5-11.0)
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
[2021-06-23 06:10] LABS: Alanine Aminotransferase 19 IU/L (<50); Albumin 4.8 g/dL (3.5-5.0); Albumin Globulin Ratio 1.1 (1.0-2.8); Alkaline Phosphatase 108 U/L (38-126); Aspartate Aminotransferase 25 IU/L (17-59); BUN Creatinine Ratio 7.4 (6-22); Bilirubin Total 0.7 mg/dL (0.2-1.3); Blood Urea Nitrogen 9 mg/dL (9-20); Calcium 9.3 mg/dL (8.4-10.2); Carbon Dioxide 28 mmol/L (22-32); Chloride 104 mmol/L (98-107); Estimated Glomerular Filt Rate > 60 mL/min (>60); Globulin 4.5 g/dL (1.7-4.1); Glucose 98 mg/dL (70-100); HEMOLYSIS < 15 (0-50); Lipase 139 U/L (23-300); Sodium 140 mmol/L (137-145); Total Protein 9.3 g/dL (6.3-8.2)
[2021-06-23] MEDS: ONDANSETRON 4 MG/2 ML INJ IV (06:20)
[2021-06-23] MEDS: SODIUM CHLORIDE 0.9% 1,000 ML 1000 ML IV (06:20)
[2021-06-23] MEDS: DEXAMETHASONE 10 MG/ML VIAL IV (06:31)
[2021-06-23] MEDS: KETOROLAC 30 MG/ML VIAL IV (06:31)
[2021-06-23 06:33] VITALS: PULSE 86; O2SAT 98
--- NOTE | 2021-06-23 06:34 | DI.CT.S_ITS ---
PROCEDURE: CT THORACIC SPINE WO CON INDICATIONS: back pain, hx of fusion TECHNIQUE: Noncontrast 3 mm thick sections acquired through the region of interest in the thoracic spine. Sagittal and coronal reformats were then constructed. For radiation dose reduction, the following was used: automated exposure control. COMPARISON: [facility], CT, CT THORACIC SPINE WO CON, 07/02/2019, 15:06. FINDINGS: Image quality: Excellent. Bones: Status post T1-T3 posterior fusion. Orthopedic hardware is in expected position. Orthopedic hardware is intact. There is normal overall bony alignment. No acute vertebral body compression fractures. No suspicious sclerotic or lytic bony lesions. Central spinal canal is of normal overall caliber. Soft tissues: No paravertebral masses or hematomas. Visualized posteromedial lungs appear clear. IMPRESSION: No fracture. No acute osseous lesion. If symptoms and/or clinical suspicion for pathology persists, evaluation with MRI should be considered for further assessment. Dictated by: Chloe Kumar MD, PhD on 06/23/2021 at 7:51 Approved by: Chloe Kumar MD, PhD on 06/23/2021 at 7:55
[2021-06-23 07:00] VITALS: BP 112/73; PULSE 77; O2SAT 99
[2021-06-23] MEDS: diphenhydrAMINE 50 MG/ML VIAL 25 MG IV (07:03)
[2021-06-23] MEDS: MORPHINE 4 MG/ML INJ IV (07:22)
[2021-06-23 07:30] VITALS: BP 117/79; PULSE 72; O2SAT 95
[2021-06-23 08:52] VITALS: BP 117/78; PULSE 76; RESP 18; O2SAT 97
== END 2021-06-23 08:55 | disposition home or self-care (01) ==
PROVIDERS: Emergency Medicine; Emergency Provider Emergency Medicine; PCP Family Medicine
DX: G43.909 Migraine, unspecified, not intractable, without status migrainosus (principal); M54.6 Pain in thoracic spine; H53.2 Diplopia
CPT/HCPCS: 36415; 72128; 80053; 81003; 83690; 85025; 93005; 93010; 96374; 96375; 99284; J1100; J1200; J1885; J2270; J2405

== ENCOUNTER 2021-07-19 05:11 | Emergency (ER) | payer MEDICARE, OTHER, SELFPAY ==
[2021-07-19 05:25] VITALS: BP 126/85; PULSE 93; RESP 18; TEMP 36.6; O2SAT 98
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
[2021-07-19] MEDS: KETOROLAC 30 MG/ML VIAL IV (06:03)
[2021-07-19] MEDS: HYDROMORPHONE 1 MG INJ IV (06:03)
[2021-07-19] MEDS: SODIUM CHLORIDE 0.9% 1,000 ML 1000 ML IV (06:04)
[2021-07-19] MEDS: ONDANSETRON 4 MG/2 ML INJ IV (06:11)
[2021-07-19 07:35] VITALS: BP 118/86; PULSE 57; RESP 12; O2SAT 98
== END 2021-07-19 07:51 | disposition home or self-care (01) ==
PROVIDERS: Emergency Provider Emergency Medicine; PCP Family Medicine
DX: G43.909 Migraine, unspecified, not intractable, without status migrainosus (principal); R11.2 Nausea with vomiting, unspecified
CPT/HCPCS: 96361; 96374; 96375; 99283; 99284; J1170; J1885; J2405

== ENCOUNTER 2021-10-04 07:03 | Emergency (ER) | payer MEDICARE, OTHER, SELFPAY ==
[2021-10-04 07:20] VITALS: BP 151/91; PULSE 80; RESP 18; TEMP 36.3; O2SAT 99; BMI 25.0
[2021-10-04] MEDS: SODIUM CHLORIDE 0.9% 1,000 ML 1000 ML IV (08:23)
[2021-10-04] MEDS: ONDANSETRON 4 MG/2 ML INJ IV (08:23)
[2021-10-04] MEDS: KETOROLAC 30 MG/ML VIAL 15 MG IV (08:23)
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
[2021-10-04] MEDS: HYDROMORPHONE 1 MG INJ IV (10:27)
[2021-10-04] MEDS: DEXAMETHASONE 10 MG/ML VIAL IV (10:27)
[2021-10-04 10:29] VITALS: BP 133/90; PULSE 82; O2SAT 99
[2021-10-04 10:30] VITALS: BP 129/85; PULSE 77; O2SAT 99
[2021-10-04 11:00] VITALS: PULSE 66; O2SAT 95
[2021-10-04 11:01] VITALS: BP 105/73; PULSE 66; O2SAT 96
[2021-10-04 11:30] VITALS: BP 105/70; PULSE 65; O2SAT 96
--- NOTE | 2021-10-04 14:53 | PC.NURSE ---
Patient called in asking questions about discharge plan. Reiterated discharge plan written out from this morning's visit. Patient has not filled steroid RX from neurologist. will strip picker RX and try and get that on board. Suggested use of home anti nausea meds and home migraine meds. Discussed things that would bring them back to ER.
== END 2021-10-04 12:03 | disposition home or self-care (01) ==
PROVIDERS: Emergency Provider Emergency Medicine; PCP Family Medicine
DX: G43.909 Migraine, unspecified, not intractable, without status migrainosus (principal)
CPT/HCPCS: 36415; J1100; J1170; J1885; J2405

== ENCOUNTER 2021-10-04 19:34 | Emergency (ER) | payer MEDICARE, OTHER, SELFPAY ==
[2021-10-04 19:37] VITALS: BP 130/86; PULSE 108; RESP 18; TEMP 36.8; O2SAT 99; BMI 25.0
--- NOTE | 2021-10-04 19:50 | DI.CT.S_ITS ---
PROCEDURE: CT HEAD/BRAIN WO CON INDICATIONS: intractable migraine, hx tbi TECHNIQUE: Noncontrast 4.5 mm thick angled axial sections acquired from the foramen magnum to the vertex, with coronal and sagittal reformats. For radiation dose reduction, the following was used: automated exposure control, adjustment of mA and/or kV according to patient size. COMPARISON: [facility], CT, CT HEAD/BRAIN WO CON, 05/12/2021, 7:53. FINDINGS: Image quality: Excellent. CSF spaces: Basal cisterns are patent. No extra-axial fluid collections. Ventricles are normal in size and shape. Brain: No intracranial hemorrhage, mass, or mass effect. Blackman-white matter interface appears preserved. Skull and face: Calvarium and visualized facial bones are intact, without suspicious lesions. Sinuses: Visualized sinuses demonstrate mild mucosal thickening within the right maxillary sinus. Mastoid air cells are clear. IMPRESSION: 1. No acute intracranial abnormality. Dictated by: Maury Lerma M.D. on 10/04/2021 at 20:04 Approved by: Maury Lerma M.D. on 10/04/2021 at 20:05
[2021-10-04] MEDS: SODIUM CHLORIDE 0.9% 1,000 ML 1000 ML IV (20:02)
[2021-10-04] MEDS: ONDANSETRON 4 MG/2 ML INJ IV (20:02)
[2021-10-04] MEDS: KETOROLAC 30 MG/ML VIAL 15 MG IV (20:03)
[2021-10-04] MEDS: HYDROMORPHONE 0.5 MG INJ IV (20:58)
[2021-10-04 21:18] LABS: COVID19 -Nasal RAPID Negative (Negative)
--- NOTE | 2021-10-04 21:47 | ED_ITS ---
HPI - Headache General Chief Complaint: Headache Stated Complaint: migraine getting worse, vomiting Time Seen by Provider: 10/04/21 19:50 Mode of arrival: Ambulatory History of Present Illness HPI Narrative: 36M nonsmoker with history of migraines, closed head injury, and chronic back pain presents with his significant other and a chief complaint?of a recurrence of the headache that brought him in earlier tonight. He was seen and evaluated earlier today for migraine headache that is rather typical in its location and gradual onset along with associated provocation from bright lights and loud noise but did not improve with medications at home like it typically does. He is had some nausea and vomiting. He denies recent trauma or injury, takes no blood thinners and has had no fever or chills. He denies any neck pain or neurologic symptoms such as numbness, tingling or weakness. He was seen and evaluated earlier and felt much better after typical therapies. He went home and slowly and gradually his headache worsened Related Data Home Medications Medication Instructions Recorded Confirmed naproxen 500 mg tablet 500 mg PO BIDCC PRN pain ##0 01/23/17 02/25/18 omeprazole 20 mg capsule,delayed 20 mg PO BID ##0 01/23/17 02/25/18 release famotidine 20 mg tablet (Pepcid) 20 mg PO BID ##0 05/10/17 02/25/18 pregabalin 150 mg capsule (Lyrica) 150 mg PO TID ##0 05/10/17 02/25/18 rizatriptan 5 mg disintegrating 5 mg translingual PRN PRN Migraine 05/10/17 02/25/18 tablet (Maxalt-CAT HOOKER) Headache ##0 donepezil 5 mg tablet 5 mg PO DAILY 02/25/18 02/25/18 escitalopram oxalate 20 mg tablet 30 mg PO DAILY 02/25/18 02/25/18 magnesium oxide 400 mg PO DAILY 02/25/18 02/25/18 ondansetron 4 mg disintegrating 4 mg PO Q6H PRN Nausea 02/25/18 02/25/18 tablet prazosin 5 mg capsule 5 mg PO QPM 02/25/18 02/25/18 promethazine 25 mg rectal 25 mg [place] PRN PRN Nausea And 02/25/18 02/25/18 suppository Vomiting turmeric 1 tab PO DAILY 02/25/18 02/25/18 zolpidem 10 mg tablet 10 mg PO BEDTIME PRN Insomnia 02/25/18 02/25/18 zonisamide 25 mg capsule 50 mg PO QPM 02/25/18 02/25/18 Previous Rx's Medication Instructions Recorded hydrocodone 5 mg-acetaminophen 325 1 tab PO Q4H PRN pain #14 tabs 02/25/18 mg tablet diazepam 5 mg tablet (Valium) 5 mg PO BID-QID PRN muscle spasm 10/08/18 #10 tabs ketorolac 10 mg tablet 10 mg PO Q6H PRN pain #14 tabs 10/08/18 diazepam 5 mg tablet (Valium) 5 mg PO TID PRN muscle spasm #10 06/23/21 tabs Allergies Allergy/AdvReac Type Severity Reaction Status Date / Time metoclopramide [From REGLAN] Allergy Unknown Verified 10/04/21 07:23 prochlorperazine Allergy Unknown Verified 10/04/21 07:23 [From COMPAZINE] tramadol [TRAMADOL] Allergy Unknown Verified 10/04/21 07:23 Review of Systems Review of Systems Narrative: GENERAL: Denies chills, fatigue, malaise, fever, sweats. HEENT: Denies sinus pain, ear pain, sore throat, difficulty swallowing, dizziness. RESPIRATORY: Denies dyspnea, cough, wheezing, hemoptysis, sputum. CARDIOVASCULAR: Denies chest pain, palpitations, orthopnea, edema, GASTROINTESTINAL: See HPI : Denies dysuria, frequency, incontinence, hematuria, urinary retention. MUSCULOSKELETAL: denies weakness, joint pain, or bony pain SKIN: Denies rash, skin lesions, or other NEUROLOGIC: See HPI PSYCHIATRIC: No concerning psychosocial issues. 12 point review of systems is negative except for those stated above Patient History Medical History Chronic back pain Fibromyalgia Radiculopathy Sciatica Surgical History No pertinent past surgical history Social History Smoking Status: Never smoker Smoking Status: Never smoker alcohol intake frequency: 0-2 drinks per day Substance Use Type: does not use Exam Narrative Exam Narrative: GENERAL: [36] year old patient appears stated age. Well-developed patient, in mild distress. GCS 15, obviously uncomfortable, sitting in a dark room HEAD: Atraumatic. Normocephalic. EYES: Pupils equal round and reactive. Extraocular motions intact. No scleral icterus. No injection or drainage. ENT: Nose without bleeding, purulent drainage. Throat without erythema, tonsilla r hypertrophy or exudate. Airway patent. NECK: Trachea midline. Non tender CARDIOVASCULAR: Regular rate and rhythm without murmurs, gallops, or rubs. RESPIRATORY: Clear to auscultation. Breath sounds equal bilaterally. No wheezes, rales, or rhonchi. GASTROINTESTINAL: Abdomen soft, non-tender, nondistended. EXTREMITIES: No edema or joint tenderness. BACK: Nontender without deformity or crepitance. No flank tenderness. NEURO: AOx3. SKIN: No rash or erythema of visible areas Initial Vital Signs Initial Vital Signs: Vital Signs Temperature 98.2 F 10/04/21 19:37 Pulse Rate 108 H 10/04/21 19:37 Respiratory Rate 18 10/04/21 19:37 Blood Pressure 130/86 10/04/21 19:37 Pulse Oximetry 99 10/04/21 19:37 Oxygen Delivery Method 10/04/21 19:37 Course Orders Ordered: ED Orders 10/04/21 19:50 CT head/brain wo con Stat 10/04/21 20:05 COVID19 -Nasal RAPID/Pre-Proc Stat Discontinued Medications Hydrocodone Bitart/Acetaminophen (Hydrocodone/Acet 5/325 Prepack) 1 bottle MISC SEEINSTR ONE Stop: 10/04/21 22:02 Last Admin: 10/04/21 22:12 Dose: 1 bottle Documented By: EMELIA Hydromorphone HCl (Hydromorphone 0.5 Mg Inj) 0.5 mg IV NOW ONE Stop: 10/04/21 20:50 Last Admin: 10/04/21 20:58 Dose: 0.5 mg Documented By: MARCIANO Sodium Chloride (Normal Saline 0.9%) 1,000 mls @ 1,000 mls/hr IV BOLUS ONE Stop: 10/04/21 20:49 Last Infusion: 10/04/21 21:27 Dose: 0 mls/hr Documented By: Admin: 10/04/21 20:02 Dose: 1,000 mls/hr Documented By: MARCIANO Ketorolac Tromethamine (Ketorolac 30 Mg/Ml Vial) 15 mg IV NOW ONE Stop: 10/04/21 19:51 Last Admin: 10/04/21 20:03 Dose: 15 mg Documented By: MARCIANO Ondansetron HCl (Ondansetron 4 Mg/2 Ml Inj) 4 mg IV NOW ONE Stop: 10/04/21 19:51 Last Admin: 10/04/21 20:02 Dose: 4 mg Documented By: MARCIANO Reevaluation(s) Reevaluation #1: Minimal improvement if any after initial round of medications, Dilaudid ordered Vital Signs Vital signs: Vital Signs - 8 hr 10/04/21 22:18 Pulse Rate 98 H Respiratory Rate 16 Blood Pressure 124/82 Pulse Oximetry 99 Oxygen Delivery Method Room Air MDM - Headache Lab Data Labs: Lab Results 10/04/21 Range/Units 20:05 SARS-CoV-2 (PCR) Negative (Negative) Imaging Data CT scan - head: Radiologist's Impression: 33M nonsmoker with history of migraines, closed head injury, and chronic back pain presents with his significant other and a chief complaint [facility] Narrative Medical decision making narrative: Headache considerations include, but not limited to: Subarachnoid hemorrhage, but unlikely as patient denies sudden onset of pain, not worst of life, or neck pain Meningitis considered, but thought unlikely given lack of Brudzinski's, Kernig's sign, altered mental status or fever Giant cell arteritis considered, but thought unlikely given lack of unilateral findings, pain in mandaen, vision change HTN Emergency considered, but thought unlikely given normal vitals Other serious diagnoses considered unlikely given lack of red flag findings such as sudden onset, increasing frequency, immunocompromise, systemic signs (fever, chills, stiff neck, or rash), focal neurologic findings, trauma, blood thinners, etc. Patient had improved symptoms after above-stated therapies, return precautions discussed at length and questions have been answered to his apparent satisfaction Discharge Plan Departure Patient Disposition: Home Clinical Impression: Migraine headache Instructions: DI for Migraine Activity Restrictions/Additional Instructions: *You have been diagnosed with [ Headache ] *What to do: *Take medications as directed *Follow up with your primary care provider in 2-3 days, call for an appointment. Let them know you were seen in the Emergency Department and that we ask that you be seen in follow up *Return to ER if you should have any new, worsening or concerning symptoms, such as [ fever > 101F, neck pain or stiffness, vomiting, confusion, seizure, focal weakness, vision change, speech deficit or other concerning symptoms ] Prescriptions: No Action omeprazole 20 mg Capsule,Delayed Release(Dr/Ec) 20 mg PO BID Qty: 0 naproxen 500 MG tablet 500 mg PO BIDCC PRN (Reason: pain) Qty: 0 famotidine [Pepcid] 20 MG tablet 20 mg PO BID Qty: 0 rizatriptan [Maxalt-CAT HOOKER] 5 MG tablet,disintegrating 5 mg Translingual PRN PRN (Reason: Migraine Headache) Qty: 0 pregabalin [Lyrica] 150 MG capsule 150 mg PO TID Qty: 0 ketorolac 10 mg tablet 10 mg PO Q6H PRN (Reason: pain) Qty: 14 0RF diazepam [Valium] 5 mg tablet 5 mg PO BID-QID PRN (Reason: muscle spasm) Qty: 10 0RF donepezil 5 mg tablet 5 mg PO DAILY prazosin 5 mg capsule 5 mg PO QPM zolpidem 10 mg tablet 10 mg PO BEDTIME PRN (Reason: Insomnia) escitalopram oxalate 20 mg tablet 30 mg PO DAILY promethazine [Phenadoz] 25 mg suppository 25 mg [place] PRN PRN (Reason: Nausea And Vomiting) ondansetron 4 mg Tablet,Disintegrating 4 mg PO Q6H PRN (Reason: Nausea) zonisamide 25 mg capsule 50 mg PO QPM magnesium oxide 400 mg magnesium Tablet 400 mg PO DAILY turmeric 1 tab PO DAILY hydrocodone-acetaminophen 5-325 mg tablet 1 tab PO Q4H PRN (Reason: pain) Qty: 14 0RF diazepam [Valium] 5 mg tablet 5 mg PO TID PRN (Reason: muscle spasm) Qty: 10 0RF Referrals: Mary Agarwal DO [Primary Care Provider] - Visit Report Forms: Patient Portal/API
[2021-10-04] MEDS: HYDROCODONE/ACET 5/325 PREPACK 1 BOTTLE MISC (22:12)
[2021-10-04 22:18] VITALS: BP 124/82; PULSE 98; RESP 16; O2SAT 99
== END 2021-10-04 22:19 | disposition home or self-care (01) ==
PROVIDERS: Emergency Medicine; Emergency Provider Emergency Medicine; PCP Family Medicine
DX: G43.909 Migraine, unspecified, not intractable, without status migrainosus (principal); Z20.822 Contact with and (suspected) exposure to COVID-19
CPT/HCPCS: 36415; 70450; 87635; 96361; 96374; 96375; 96376; 99284; C9803; J1100; J1170; J1885; J2405

== ENCOUNTER 2021-11-16 10:17 | Emergency (ER) | payer MEDICARE, OTHER, SELFPAY ==
[2021-11-16 11:01] VITALS: BP 139/87; PULSE 110; RESP 18; TEMP 36.5; O2SAT 97; BMI 25.8
== END 2021-11-16 15:58 | disposition left against medical advice (07) ==
PROVIDERS: Emergency Provider Emergency Medicine; PCP Family Medicine
CPT/HCPCS: 99281

== ENCOUNTER 2021-12-28 16:18 | Emergency (ER) | payer MEDICARE, OTHER, SELFPAY ==
[2021-12-28] VITALS (7 sets, daily range): BP systolic 120–150; BP diastolic 78–92; PULSE 99–110; RESP 16–24; TEMP 37.2; O2SAT 97–100; BMI 27.3
--- NOTE | 2021-12-28 16:58 | ED_ITS ---
HPI - General Adult General Chief complaint: Upper Respiratory Symptoms Stated complaint: covid + feeling worse Time Seen by Provider: 12/28/21 16:28 Source: patient Mode of arrival: Ambulatory Limitations: no limitations History of Present Illness HPI narrative: Patient is a 36-year-old male. History of chronic pain and multiple other chronic medical conditions. Started having COVID symptoms on Sunday of this week. They have worsened since that time. He tested himself today. He was positive for COVID today. States that his back and chest and head and muscles all ache. No rashes. Is taking his medications as directed. Related Data Home Medications Medication Instructions Recorded Confirmed naproxen 500 mg tablet 500 mg PO BIDCC PRN pain ##0 01/23/17 02/25/18 omeprazole 20 mg capsule,delayed 20 mg PO BID ##0 01/23/17 02/25/18 release famotidine 20 mg tablet (Pepcid) 20 mg PO BID ##0 05/10/17 02/25/18 pregabalin 150 mg capsule (Lyrica) 150 mg PO TID ##0 05/10/17 02/25/18 rizatriptan 5 mg disintegrating 5 mg translingual PRN PRN Migraine 05/10/17 02/25/18 tablet (Maxalt-[employer]) Headache ##0 donepezil 5 mg tablet 5 mg PO DAILY 02/25/18 02/25/18 escitalopram oxalate 20 mg tablet 30 mg PO DAILY 02/25/18 02/25/18 magnesium oxide 400 mg PO DAILY 02/25/18 02/25/18 ondansetron 4 mg disintegrating 4 mg PO Q6H PRN Nausea 02/25/18 02/25/18 tablet prazosin 5 mg capsule 5 mg PO QPM 02/25/18 02/25/18 promethazine 25 mg rectal 25 mg [place] PRN PRN Nausea And 02/25/18 02/25/18 suppository Vomiting turmeric 1 tab PO DAILY 02/25/18 02/25/18 zolpidem 10 mg tablet 10 mg PO BEDTIME PRN Insomnia 02/25/18 02/25/18 zonisamide 25 mg capsule 50 mg PO QPM 02/25/18 02/25/18 Previous Rx's Medication Instructions Recorded hydrocodone 5 mg-acetaminophen 325 1 tab PO Q4H PRN pain #14 tabs 02/25/18 mg tablet diazepam 5 mg tablet (Valium) 5 mg PO BID-QID PRN muscle spasm 10/08/18 #10 tabs ketorolac 10 mg tablet 10 mg PO Q6H PRN pain #14 tabs 10/08/18 diazepam 5 mg tablet (Valium) 5 mg PO TID PRN muscle spasm #10 06/23/21 tabs Allergies Allergy/AdvReac Type Severity Reaction Status Date / Time metoclopramide [From REGLAN] Allergy Unknown Verified 12/28/21 16:30 prochlorperazine Allergy Unknown Verified 12/28/21 16:30 [From COMPAZINE] tramadol [TRAMADOL] Allergy Unknown Verified 12/28/21 16:30 Review of Systems Constitutional Constitutional: Reports fever(s) and Reports headache(s) ENT Ears, Nose, Mouth, and Throat: Reports headache(s) Cardiovascular Cardiovascular: Reports system reviewed and no additional complaints, except as documented Respiratory Respiratory: Reports system reviewed and no additional complaints, except as documented Gastrointestinal Gastrointestinal: Reports system reviewed and no additional complaints, except as documented Musculoskeletal Musculoskeletal: Reports system reviewed and no additional complaints, except as documented Integumentary/Breasts Skin/Breast: Reports system reviewed and no additional complaints, except as documented Neurologic Neurologic: Reports headache(s) Hematologic/Lymphatic On Anticoagulants: No Patient History Medical History (Updated 12/28/21 @ 17:07 by Edd Lopez DO) Chronic back pain Fibromyalgia Radiculopathy Sciatica Surgical History No pertinent past surgical history Social History Smoking Status: Never smoker Smoking Status: Never smoker alcohol intake frequency: 0-2 drinks per day Substance Use Type: does not use Exam Initial Vital Signs Initial Vital Signs: Vital Signs Temperature 98.9 F 12/28/21 16:28 Pulse Rate 110 H 12/28/21 16:28 Respiratory Rate 24 12/28/21 16:28 Blood Pressure 150/92 H 12/28/21 16:28 Pulse Oximetry 97 12/28/21 16:28 Oxygen Delivery Method 12/28/21 16:28 Const General: cooperative and No ill appearing HENMT Head: normal to inspection and normocephalic Resp Effort & Inspection: normal respiratory effort Auscultation: clear to auscultation bilaterally Cardio Rate: tachycardic Rhythm: regular rhythm GI Inspection: normal to inspection Neuro General: patient alert, patient awake and moves all extremities Extrem General: normal to inspection Course Orders Ordered: Sodium Chloride (Normal Saline 0.9%) 1,000 mls @ 1,000 mls/hr IV BOLUS ONE Stop: 12/28/21 17:32 Last Admin: 12/28/21 17:09 Dose: 1,000 mls/hr Documented By: JESUS Discontinued Medications Ketorolac Tromethamine (Ketorolac 30 Mg/Ml Vial) 30 mg IV NOW ONE Stop: 12/28/21 17:00 Last Admin: 12/28/21 17:09 Dose: 30 mg Documented By: JESUS Ondansetron HCl (Ondansetron 4 Mg/2 Ml Inj) 4 mg IV NOW ONE Stop: 12/28/21 17:00 Last Admin: 12/28/21 17:09 Dose: 4 mg Documented By: JESUS Vital Signs Vital signs: Vital Signs - 8 hr 12/28/21 16:28 Temperature 98.9 F Pulse Rate 110 H Respiratory Rate 24 Blood Pressure 150/92 H Pulse Oximetry 97 Oxygen Delivery Method Room Air Medical Decision Making MDM Narrative Medical decision making narrative: No respiratory distress. Lungs are clear. No indication for antibiotics. Patient does have a flare of his chronic pain. Was given Toradol. Patient has had symptoms for 3 days. Will discharge home with return precautions Discharge Plan Departure Patient Disposition: Home Clinical Impression: COVID-19 Instructions: COVID-19 Activity Restrictions/Additional Instructions: Continue to take all of your medications as directed. Be sure to increase your fluid intake. You can take Tylenol/ibuprofen for any fevers for body aches. Follow all current CDC guidelines with regard to quarantine. Return to the emergency department for any new symptoms. Prescriptions: No Action omeprazole 20 mg Capsule,Delayed Release(Dr/Ec) 20 mg PO BID Qty: 0 naproxen 500 MG tablet 500 mg PO BIDCC PRN (Reason: pain) Qty: 0 famotidine [Pepcid] 20 MG tablet 20 mg PO BID Qty: 0 rizatriptan [Maxalt-[employer]] 5 MG tablet,disintegrating 5 mg Translingual PRN PRN (Reason: Migraine Headache) Qty: 0 pregabalin [Lyrica] 150 MG capsule 150 mg PO TID Qty: 0 ketorolac 10 mg tablet 10 mg PO Q6H PRN (Reason: pain) Qty: 14 0RF diazepam [Valium] 5 mg tablet 5 mg PO BID-QID PRN (Reason: muscle spasm) Qty: 10 0RF donepezil 5 mg tablet 5 mg PO DAILY prazosin 5 mg capsule 5 mg PO QPM zolpidem 10 mg tablet 10 mg PO BEDTIME PRN (Reason: Insomnia) escitalopram oxalate 20 mg tablet 30 mg PO DAILY promethazine [Phenadoz] 25 mg suppository 25 mg [place] PRN PRN (Reason: Nausea And Vomiting) ondansetron 4 mg Tablet,Disintegrating 4 mg PO Q6H PRN (Reason: Nausea) zonisamide 25 mg capsule 50 mg PO QPM magnesium oxide 400 mg magnesium Tablet 400 mg PO DAILY turmeric 1 tab PO DAILY hydrocodone-acetaminophen 5-325 mg tablet 1 tab PO Q4H PRN (Reason: pain) Qty: 14 0RF diazepam [Valium] 5 mg tablet 5 mg PO TID PRN (Reason: muscle spasm) Qty: 10 0RF Referrals: Mary Silvestre DO [Primary Care Provider] -
[2021-12-28] MEDS: SODIUM CHLORIDE 0.9% 1,000 ML 1000 ML IV (17:09)
[2021-12-28] MEDS: ONDANSETRON 4 MG/2 ML INJ IV (17:09)
[2021-12-28] MEDS: KETOROLAC 30 MG/ML VIAL IV (17:09)
[2021-12-28] MEDS: HALOPERIDOL 5 MG/ML VIAL 2.5 MG IV (18:06)
[2021-12-28] MEDS: ACETAMINOPHEN 325 MG TABLET 975 MG PO (18:06)
== END 2021-12-28 19:10 | disposition home or self-care (01) ==
PROVIDERS: Emergency Provider Emergency Medicine; PCP Family Medicine
DX: U07.1 COVID-19 (principal)
CPT/HCPCS: 36415; 96361; 96374; 96375; 99284; J1630; J1885; J2405